=== PATIENT | female | born 1935 | race Caucasian/White ===

== ENCOUNTER → 2018-02-19 | Emergency (ER) | payer MEDICARE ==
--- NOTE | 2018-02-19 16:38 | RAD ---
CHEST TWO VIEWS: Date: 02-19-18 Comparison: 09-14-13 FINDINGS: There is an infiltrate in the right base medially that was not seen on the prior study. The lungs are otherwise clear. There are no effusions. The heart is normal in size. There is no congestive change. IMPRESSION: Streaky right basilar infiltrate medially. An early pneumonia is possible. Code T POS: HOME
== END ==
LOC: BURERS 11:46
DX: J20.9 Acute bronchitis, unspecified (principal); I10 Essential (primary) hypertension; F32.9 Major depressive disorder, single episode, unspecified; F17.210 Nicotine dependence, cigarettes, uncomplicated
CPT/HCPCS: 71046; 94640; J7620

== ENCOUNTER 2018-02-21 23:15 | Inpatient (IN) | payer MEDICARE ==
[2018-02-21] MEDS ORDERED: cefTRIAXone\\ROCEPHIN 1 GM VIAL ONE (23:56)
[2018-02-21] MEDS ORDERED: methylPREDNISolone Sod Succ/PF 125 MG/2 ML VIAL ONE (23:57)
[2018-02-22 00:01] LABS: #Basophils 0.1 thou/uL (0.0-0.2); #Eosinphils 0.1 thou/uL (0.0-0.7); #Lymphocytes 2.7 thou/uL (1.20-3.40); #Monocytes 1.1 thou/uL (0.11-0.59); #Neutrophils 5.2 thou/uL (1.40-6.50); %Eosinophils 1.3 % (0.0-10.0); %Lymphocytes 29.6 % (21.0-51.0); %Monocytes 11.7 % (0.0-10.0); %Neutrophils 56.4 % (42.0-75.0); Hemoglobin 14.3 g/dL (12.0-16.0); Mean Corpuscular HGB CONC 35.4 g/dL (32.0-36.0); Mean Corpuscular Hemoglobin 29.8 pg (27.0-31.0); Mean Corpuscular Volume 84.3 fL (78.0-98.0); Mean Platelet Volume 6.4 fL (7.4-10.4); Platelet Count 148 thou/uL (130-400); RBC Distribution Width 12.4 % (11.5-14.5); Red Blood Cell (RBC) Count 4.79 mill/uL (4.20-5.40); White Blood Cell (WBC) Count 9.2 thou/uL (4.8-10.8)
[2018-02-22 00:15] LABS: Anion Gap 14 mmol/L (10-20); BUN (Urea Nitrogen) 23 mg/dL (9.8-20.1); CK (CPK) 345 U/L (29-168); Calc. Creatinine Clearance 0 mL/min (70-130); Calcium 9.8 mg/dL (7.8-10.44); Carbon Dioxide 27 mmol/L (23-31); Chloride 98 mmol/L (98-107); Estimated GFR-MDRD 42; Glucose 102 mg/dL (83-110); Potassium 4.2 mmol/L (3.5-5.1); Sodium 135 mmol/L (136-145)
[2018-02-22] MEDS ORDERED: hydrALAZINE 20 MG/ML VIAL ONE (00:42)
[2018-02-22] MEDS ORDERED: Ondansetron PF 4 MG/2 ML Vial IVP PRN (01:59)
[2018-02-22] MEDS ORDERED: Ondansetron ODT 4 MG TAB SL PRN (01:59)
[2018-02-22] MEDS ORDERED: HYDROcodone/Acetaminophen 5/325 mg Tablet PO PRN (01:59)
[2018-02-22] MEDS ORDERED: Acetaminophen 325 MG TAB PO PRN (01:59)
[2018-02-22] MEDS ORDERED: Albuterol Sulfate 2.5 mg/3 ml Neb NEB PRN (02:01)
[2018-02-22] MEDS ORDERED: Sodium Chloride 0.9% 10 ML ONE (02:03)
[2018-02-22 02:51] LABS: Bilirubin Negative (Negative); Blood, Urine Trace (Negative); Clarity Clear (Clear); Glucose, Urine (Dipstick) Negative (Negative); Leukocyte Negative (Negative); Nitrite Negative (Negative); Protein, Urine (Dipstick) Negative (Neg-Trace); Urobilinogen 0.2 mg/dL (0.2-1.0); pH, Urine 6.5 (5.0-9.0)
[2018-02-22 02:59] LABS: Squamous Epithelial 0-3 HPF (0-3); Transitional Epithelial 0-3 HPF (0-3); WBC/HPF 0-3 HPF (0-3)
[2018-02-22] MEDS: methylPREDNISolone Sod Succ/PF 125 MG/2 ML VIAL IVP SCH ×3 (06:26→17:59)
--- NOTE | 2018-02-22 08:26 | RAD ---
PORTABLE CHEST: DATE: 02/21/2018. FINDINGS: An AP portable film at 2317 is compared with a 02/19 study. There is still some right basilar streak ing medially consistent with infiltrate, thought it has slightly improved in the interim. No new con solidations were seen. There is no vascular congestion or edema. There are no pleural effusions of concern. The heart size remains normal. IMPRESSION: Streaky right basilar infiltrate with mild improvement since 02/19. POS: HOME
[2018-02-22] MEDS ORDERED: LUTEIN EXTRACT PO SCH (09:00)
[2018-02-22] MEDS ORDERED: DHA PO SCH (09:00)
[2018-02-22] MEDS ORDERED: [UNRECOGNIZED DRUG - OTHER] PO SCH (09:00)
[2018-02-22] MEDS ORDERED: METHYLSULFONYLMETHANE PO SCH (09:00)
[2018-02-22] MEDS ORDERED: ROSUVASTATIN PO SCH (09:00)
[2018-02-22] MEDS ORDERED: OMEGA PO SCH (09:00)
[2018-02-22] MEDS ORDERED: LIPIDS PO SCH (09:00)
[2018-02-22] MEDS ORDERED: Bisoprolol Fumarate/HCTZ 5 mg/6.25 mg Tablet PO SCH (09:00)
[2018-02-22] MEDS ORDERED: LEVOTHYROXINE SODIUM 75 MCG PO SCH (09:00)
[2018-02-22] MEDS ORDERED: Non-Formulary Item 1 EACH (Multivitamin [Multi-Vitamin Daily] 1 TABLET) PO SCH (09:00)
[2018-02-22] MEDS ORDERED: ESCITALOPRAM OXALATE 10 MG PO SCH (09:00)
[2018-02-22] MEDS ORDERED: KRILL PO SCH (09:00)
[2018-02-22] MEDS ORDERED: ZEAXANTHIN EXT PO SCH (09:00)
[2018-02-22] MEDS ORDERED: EPA PO SCH (09:00)
[2018-02-22] MEDS: Calcium Carbonate + Vit D 1 TAB PO SCH ×2 (09:52→21:20)
[2018-02-22] MEDS: Multivit, Therapeutic 1 TAB PO SCH (09:53)
[2018-02-22] MEDS: Escitalopram Oxalate 20 mg Tablet PO SCH (09:53)
[2018-02-22] MEDS: Aspirin 81 mg Enteric Coated Tablet PO SCH (09:54)
[2018-02-22] MEDS: METHYLSULFONYLMETHANE PO SCH ×2 (10:03→21:04)
[2018-02-22] MEDS: LUTEIN PO SCH (10:03)
[2018-02-22] MEDS: OMEGA KRILL OIL PO SCH (10:04)
[2018-02-22] MEDS: Rosuvastatin 10 MG TAB PO SCH (21:20)
[2018-02-22] MEDS: Enoxaparin Sodium 30 MG/0.3 ML SYRINGE SC SCH (21:23)
[2018-02-23] MEDS: cefTRIAXone\\ROCEPHIN 1 GM in Sodium Chloride 0.9% 100 ML IVPB SCH (00:02)
[2018-02-23] MEDS: methylPREDNISolone Sod Succ/PF 125 MG/2 ML VIAL IVP SCH ×4 (00:04→17:44)
--- NOTE | 2018-02-23 00:33 | HP ---
PRIMARY CARE PHYSICIAN: Tl Marx MD CHIEF COMPLAINT: Shortness of breath and worsening cough. HISTORY OF PRESENT ILLNESS: Ms. Garzon is an 82-year-old white female with hypertension, hyperlipidemia, chronic kidney disease with long history of smoking and depression, presented to the emergency room on 02/21/2018 complaining of worsening cough and shortness of breath. Her symptoms started as runny cindy, chest congestion, and cough on Friday. She was advised to seek care prior to visiting her son with a terminal cancer, currently under hospice. She was diagnosed of community-acquired pneumonia and was given Azithromycin and sent home. Her cough got worse, this time associated with wheezing and shortness of breath. According to family member, she woke up from sleep night prior to admission gasping for air. She was also complaining of rib cage pain. She was seen at the ED. Her vital signs showed pulse rate of 94, respiratory rate 20, temperature of 98, O2 sat 91% to 92% on room air, and blood pressure of 205/82. She had diffused wheezing and tight breath sounds. Her chest x-ray showed streaky right basilar infiltrates with mild improvement from 02/19/2018. CBC showed WBC of 9, hemoglobin of 14, hematocrit of 40, platelet count of 148, neutrophils of 56, lymphocytes of 29, monocytes of 11.7. CMP showed sodium of 135, potassium of 4.2, chloride of 98, carbon dioxide of 27 , BUN of 23, creatinine of 1.21, GFR of 42. Glucose was 102, lactic acid was 0.6, calcium 9.8, creatinine kinase was 345, troponin was 0.015. Her EKG showed left axis deviation, nonspecific ST-T wave changes, flattened I and aVL. In the ED, she was given Solu-Medrol, DuoNeb, and hydralazine IV. Due to her worsening symptoms with hypoxemia on presentation and failed outpatient treatment for hospital- acquired pneumonia and COPD, the patient is meeting criteria for admission. This morning , she slightly improved with her breathing except for persistent cough. She is requiring breathing treatments with albuterol every 4 to 6 hours and oxygen and maintaining sats above 94%. PAST MEDICAL HISTORY: 1. Hypertension. 2. Hyperlipidemia. 3. Chronic kidney disease. 4. COPD. 5. Chronic smoker. 6. Depression. PAST SURGICAL HISTORY: 1. Hysterectomy. 2. Back surgery. SOCIAL HISTORY: The patient is a 60-pack year smoker. Last smoking was 5 days ago. She denies alcohol or drug use. FAMILY HISTORY: Mother had breast cancer and dad had heart attack. Son was diagnosed with end-stage abdominal cancer. MEDICATIONS: 1. Aspirin 81 mg daily. 2. Ziac 5 mg/6.25 mg one tablet daily. 3. Calcium with vitamin D one tablet daily. 4. Lexapro 10 mg daily. 5. Levothyroxine 75 mcg daily. 6. Multivitamins one tablet daily. 7. Crestor 2.5 mg daily. ALLERGIES: NO KNOWN DRUG ALLERGIES. CODE STATUS: Full code. REVIEW OF SYSTEMS: GENERAL: Negative for fever. Negative for chills. Positive for fatigue. HEENT: Positive for nasal congestion, rhinorrhea. Negative for sore throat. Positive for hoarseness. RESPIRATORY: Positive for shortness of breath, positive for cough. CARDIOVASCULAR: Negative for chest pain. Positive for swelling on legs. ABDOMEN: Negative for nausea or vomiting. Negative for decreased appetite. NEUROLOGIC: Negative for weakness. Negative for numbness. PSYCH: Positive for depression, stable. Negative for anxiety. DERMATOLOGY: Negative for skin rashes or lesions. PHYSICAL EXAMINATION: VITAL SIGNS: Blood pressure of 145/96, temperature of 97.4, pulse rate of 72, respiratory rate of 20, and O2 sat 93% at 2 L per nasal cannula. HEENT: Normocephalic, atraumatic. Pupils are equal and reactive to light. Negative for tonsillopharyngeal congestion. NECK: Supple. Negative for JVD. Negative for bruit. CHEST AND LUNGS: Decreased breath sounds with expiratory wheezes. HEART: Regular rate and rhythm. Negative for murmurs, rubs, or gallops. ABDOMEN: Slightly distended, soft, normoactive bowel sounds. Negative for rebound tenderness, negative for CVA tenderness. EXTREMITIES: Negative for edema. Negative for cyanosis. PSYCH: Appropriate affect and demeanor. NEUROLOGIC: Cranial nerves 2 through 12 intact. LABORATORY DATA: Labs reviewed. ASSESSMENT: 1. Acute respiratory distress secondary to community-acquired right lower lobe pneumonia with chronic obstructive pulmonary disease exacerbation. 2. Hypertension, uncontrolled. 3. Hypothyroidism. 4. Chronic kidney disease stage 2. 5. Hyperlipidemia. 6. Depression. PLAN: 1. Continue IV antibiotics for treatment of hospital or community-acquired pneumonia, blood cultures pending. 2. Change albuterol to DuoNeb every 4 to 6 hours p.r.n. for coughing and wheezing. 3. Continue IV Solu-Medrol tapered dose. 4. Repeat labs in the a.m. 5. Reconcile home medication depending on clinical status. 6. Lovenox for DVT prophylaxis. 7. dry cleaning manager to help with discharge planning and DME needs prior to discharge. 8. Transfer of care to Dr. Tl Marx in a.m. Job ID: [id number] [facility]
[2018-02-23 04:07] LABS: #Basophils 0.1 thou/uL (0.0-0.2); #Lymphocytes 1.3 thou/uL (1.20-3.40); #Monocytes 0.7 thou/uL (0.11-0.59); #Neutrophils 10.4 thou/uL (1.40-6.50); %Lymphocytes 10.2 % (21.0-51.0); %Monocytes 5.6 % (0.0-10.0); %Neutrophils 83.2 % (42.0-75.0); Hemoglobin 13.9 g/dL (12.0-16.0); Mean Corpuscular Hemoglobin 29.7 pg (27.0-31.0); Mean Corpuscular Volume 82.7 fL (78.0-98.0); Mean Platelet Volume 7.5 fL (7.4-10.4); Platelet Count 164 thou/uL (130-400); Red Blood Cell (RBC) Count 4.66 mill/uL (4.20-5.40); White Blood Cell (WBC) Count 12.5 thou/uL (4.8-10.8)
[2018-02-23 04:20] LABS: ALT (SGPT) 20 U/L (8-55); AST (SGOT) 36 U/L (5-34); Albumin 3.7 g/dL (3.4-4.8); Alkaline Phosphatase 48 U/L (40-150); Anion Gap 18 mmol/L (10-20); BUN (Urea Nitrogen) 28 mg/dL (9.8-20.1); Bilirubin, Total 0.3 mg/dL (0.2-1.2); Calc. Creatinine Clearance 43 mL/min (70-130); Calcium 9.8 mg/dL (7.8-10.44); Carbon Dioxide 21 mmol/L (23-31); Chloride 96 mmol/L (98-107); Estimated GFR-MDRD 38; Globulin 2.9 g/dL (2.4-3.5); Glucose 145 mg/dL (83-110); Potassium 3.8 mmol/L (3.5-5.1); Protein, Total 6.6 g/dL (6.0-8.3); Sodium 131 mmol/L (136-145)
[2018-02-23] MEDS: Levothyroxine Sodium 25 MCG TAB PO SCH (06:19)
[2018-02-23] MEDS ORDERED: diphenhydrAMINE 12.5 MG/5 ML UDCUP PO PRN (07:13)
[2018-02-23] MEDS ORDERED: Phenergan/Codeine 10-6.25mg/5ml UDCUP PO PRN (07:13)
[2018-02-23] MEDS ORDERED: Bisoprolol Fumarate 5 MG TAB PO SCH (09:00)
[2018-02-23] MEDS ORDERED: Prevnar 13-Val Conj/PF 0.5 ML SYRINGE IM ONE (09:00)
[2018-02-23] MEDS: Escitalopram Oxalate 20 mg Tablet PO SCH (09:37)
[2018-02-23] MEDS: Multivit, Therapeutic 1 TAB PO SCH (09:39)
[2018-02-23] MEDS: Hydrochlorothiazide 25 MG TAB PO SCH (09:39)
[2018-02-23] MEDS: Bisoprolol Fumarate 5 MG TAB PO SCH (09:40)
[2018-02-23] MEDS: Aspirin 81 mg Enteric Coated Tablet PO SCH (09:41)
[2018-02-23] MEDS: LUTEIN PO SCH (09:47)
[2018-02-23] MEDS: METHYLSULFONYLMETHANE PO SCH (09:47)
[2018-02-23] MEDS: OMEGA KRILL OIL PO SCH (09:48)
[2018-02-23] MEDS: Calcium Carbonate + Vit D 1 TAB PO SCH ×2 (09:50→20:46)
[2018-02-23 17:20] VITALS: BMI 32.3
[2018-02-23] MEDS: Rosuvastatin 10 MG TAB PO SCH (20:46)
[2018-02-23] MEDS: Enoxaparin Sodium 30 MG/0.3 ML SYRINGE SC SCH (20:48)
[2018-02-23] MEDS ORDERED: diphenhydrAMINE 12.5 MG/5 ML UDCUP ONE (22:19)
[2018-02-24] MEDS: methylPREDNISolone Sod Succ/PF 125 MG/2 ML VIAL IVP SCH ×4 (00:16→18:15)
[2018-02-24] MEDS: cefTRIAXone\\ROCEPHIN 1 GM in Sodium Chloride 0.9% 100 ML IVPB SCH (00:17)
[2018-02-24 04:10] LABS: #Basophils 0.1 thou/uL (0.0-0.2); #Lymphocytes 1.3 thou/uL (1.20-3.40); #Monocytes 0.8 thou/uL (0.11-0.59); #Neutrophils 14.3 thou/uL (1.40-6.50); %Basophils 0.4 % (0.0-1.0); %Lymphocytes 7.7 % (21.0-51.0); %Monocytes 5.1 % (0.0-10.0); %Neutrophils 86.8 % (42.0-75.0); Hemoglobin 13.5 g/dL (12.0-16.0); Mean Corpuscular HGB CONC 35.8 g/dL (32.0-36.0); Mean Corpuscular Hemoglobin 29.4 pg (27.0-31.0); Mean Corpuscular Volume 82.1 fL (78.0-98.0); Mean Platelet Volume 6.9 fL (7.4-10.4); Platelet Count 195 thou/uL (130-400); RBC Distribution Width 11.8 % (11.5-14.5); White Blood Cell (WBC) Count 16.5 thou/uL (4.8-10.8)
[2018-02-24 04:26] LABS: ALT (SGPT) 25 U/L (8-55); AST (SGOT) 45 U/L (5-34); Albumin 3.6 g/dL (3.4-4.8); Alkaline Phosphatase 45 U/L (40-150); Anion Gap 17 mmol/L (10-20); BUN (Urea Nitrogen) 32 mg/dL (9.8-20.1); Bilirubin, Total 0.3 mg/dL (0.2-1.2); Calc. Creatinine Clearance 47 mL/min (70-130); Calcium 9.4 mg/dL (7.8-10.44); Carbon Dioxide 22 mmol/L (23-31); Chloride 95 mmol/L (98-107); Estimated GFR-MDRD 42; Globulin 2.5 g/dL (2.4-3.5); Glucose 129 mg/dL (83-110); Potassium 3.8 mmol/L (3.5-5.1); Protein, Total 6.1 g/dL (6.0-8.3); Sodium 130 mmol/L (136-145)
[2018-02-24] MEDS: Levothyroxine Sodium 25 MCG TAB PO SCH (06:24)
[2018-02-24] MEDS ORDERED: Sodium Chloride 0.9% 0 ML ONE (07:45)
--- NOTE | 2018-02-24 07:58 | RAD ---
CHEST TWO VIEWS: 02/24/2018 COMPARISON: Portable study from 02/21/2018. FINDINGS: PA and lateral views are provided. One view is taken in partial expiration, so there is crowding of the basilar lung markings, particularly on the left. Another view is in better inspiration, that ada ws improvement here. Overall, there is minimal infiltrate remaining in the right base. There is a s mall amount present in the left base. I cannot tell what part of this is atelectasis versus actual i nfiltrate from pneumonia. There are no effusions. The upper lobes are clear. The trachea is midlin e. IMPRESSION: Similar to 02/21/2018 study, except slightly more streaking in the left base, some of which may be at electasis. POS: HOME
[2018-02-24] MEDS: Hydrochlorothiazide 25 MG TAB PO SCH (09:07)
[2018-02-24] MEDS: Bisoprolol Fumarate 5 MG TAB PO SCH (09:07)
[2018-02-24] MEDS: Aspirin 81 mg Enteric Coated Tablet PO SCH (09:08)
[2018-02-24] MEDS: Escitalopram Oxalate 20 mg Tablet PO SCH (09:09)
[2018-02-24] MEDS: Losartan Potassium 50 MG TAB PO SCH (09:09)
[2018-02-24] MEDS: Calcium Carbonate + Vit D 1 TAB PO SCH ×2 (09:10→21:02)
[2018-02-24] MEDS: Multivit, Therapeutic 1 TAB PO SCH (09:12)
[2018-02-24] MEDS: Sodium Chloride 0.9% 1,000 ML IV SCH (09:13)
[2018-02-24] MEDS: Rosuvastatin 10 MG TAB PO SCH (21:02)
[2018-02-24] MEDS: Enoxaparin Sodium 30 MG/0.3 ML SYRINGE SC SCH (22:53)
[2018-02-25] MEDS: methylPREDNISolone Sod Succ/PF 125 MG/2 ML VIAL IVP SCH ×2 (00:01→08:57)
[2018-02-25] MEDS: cefTRIAXone\\ROCEPHIN 1 GM in Sodium Chloride 0.9% 100 ML IVPB SCH (00:03)
[2018-02-25 03:59] LABS: #Basophils 0.2 thou/uL (0.0-0.2); #Lymphocytes 1.3 thou/uL (1.20-3.40); #Monocytes 0.8 thou/uL (0.11-0.59); #Neutrophils 11.5 thou/uL (1.40-6.50); %Basophils 1.1 % (0.0-1.0); %Lymphocytes 9.6 % (21.0-51.0); %Monocytes 5.8 % (0.0-10.0); %Neutrophils 83.5 % (42.0-75.0); Hemoglobin 13.2 g/dL (12.0-16.0); Mean Corpuscular HGB CONC 35.6 g/dL (32.0-36.0); Mean Corpuscular Hemoglobin 29.1 pg (27.0-31.0); Mean Corpuscular Volume 81.6 fL (78.0-98.0); Mean Platelet Volume 6.8 fL (7.4-10.4); Platelet Count 213 thou/uL (130-400); RBC Distribution Width 11.8 % (11.5-14.5); Red Blood Cell (RBC) Count 4.55 mill/uL (4.20-5.40); White Blood Cell (WBC) Count 13.8 thou/uL (4.8-10.8)
[2018-02-25 04:03] LABS: ALT (SGPT) 25 U/L (8-55); AST (SGOT) 38 U/L (5-34); Albumin 3.4 g/dL (3.4-4.8); Alkaline Phosphatase 40 U/L (40-150); Anion Gap 14 mmol/L (10-20); BUN (Urea Nitrogen) 30 mg/dL (9.8-20.1); Bilirubin, Total 0.3 mg/dL (0.2-1.2); Calc. Creatinine Clearance 50 mL/min (70-130); Calcium 9.5 mg/dL (7.8-10.44); Carbon Dioxide 25 mmol/L (23-31); Chloride 99 mmol/L (98-107); Estimated GFR-MDRD 46; Globulin 2.3 g/dL (2.4-3.5); Glucose 124 mg/dL (83-110); Potassium 3.7 mmol/L (3.5-5.1); Protein, Total 5.7 g/dL (6.0-8.3); Sodium 134 mmol/L (136-145)
[2018-02-25] MEDS: Levothyroxine Sodium 25 MCG TAB PO SCH (05:59)
[2018-02-25 06:30] VITALS: BP 138/98; TEMP 97.9
[2018-02-25] MEDS: Hydrochlorothiazide 25 MG TAB PO SCH (08:54)
[2018-02-25] MEDS: Multivit, Therapeutic 1 TAB PO SCH (08:54)
[2018-02-25] MEDS: Escitalopram Oxalate 20 mg Tablet PO SCH (08:55)
[2018-02-25] MEDS: Bisoprolol Fumarate 5 MG TAB PO SCH (08:56)
[2018-02-25] MEDS: Aspirin 81 mg Enteric Coated Tablet PO SCH (08:56)
[2018-02-25] MEDS: Losartan Potassium 50 MG TAB PO SCH (08:56)
[2018-02-25] MEDS: Sodium Chloride 0.9% 1,000 ML IV SCH (08:57)
[2018-02-25] MEDS: Calcium Carbonate + Vit D 1 TAB PO SCH (08:57)
--- NOTE | 2018-02-26 05:16 | DIS ---
DATE OF ADMISSION: 02/22/2018 DATE OF DISCHARGE: 02/25/2018 ADMISSION DIAGNOSIS: Community-acquired pneumonia with right lower lobe chronic obstructive pulmonary disease exacerbation. SECONDARY DIAGNOSES: Hypertension, hyperlipidemia, hypothyroidism, insomnia, and hyponatremia. PROCEDURES: 02-22-18 chest x-ray showed streaky right basilar infiltrate with mild improvement since 02/19/2018. 02/24/2018, chest x-ray showed similar to prior study except slightly more streaking in the left base, some of which maybe atelectasis. HOSPITAL COURSE: An 82-year-old female with chronic smoking history, initially presented to the emergency department a few days prior to admission with diagnosis of community-acquired pneumonia and was sent home on a course of p.o. azithromycin. Unfortunately, her URI symptoms worsened to the point that she developed shortness of breath and borderline desaturations. A repeat chest x-ray did show right basilar infiltrate with mild improvement. However, secondary to her worsening respiratory status, she was admitted for further treatment. She was started on IV Solu- Medrol, DuoNeb treatments, and empiric therapy with Rocephin and Levaquin IV. She was provided supplemental oxygen, which at this point has been effectively weaned. Her labs were trended and due to mild hyponatremia, she was provided normal saline which improved this issue. The patient's wheezing and cough both vastly improved to where she is near her baseline respiratory status at this point. She is amenable to discharge to her home setting to complete her course of p.o. antibiotics, p.o. steroids with a rescue inhaler for p.r.n. use. We will also start the patient on Anoro as well for a baseline medication for her newly diagnosed COPD. During the patient's stay, her blood pressure remained elevated, thus losartan was initiated which did improve her hypertension. As stated, she feels much better at this time and is appropriate for discharge to complete the aforementioned medications. DISPOSITION: The patient will be discharged home and may follow up with myself in the clinic next week. DISCHARGE MEDICATIONS: Include, 1. Levaquin 500 mg p.o. daily x5 days. 2. Prednisone 20 mg 2 tabs x3 days followed by 1 tab for an additional 3 days. 3. Anoro 1 puff inhaled daily. 4. Proventil inhaler 1 puff q.6 hours p.r.n. 5. Losartan 50 mg p.o. daily. She will resumer her usual medications which include, 1. Aspirin 81 mg p.o. daily. 2. Ziac 5 mg/6.25 mg p.o. daily. 3. Calcium and vitamin D tablet daily. 4. Lexapro 10 mg p.o. daily. 5. Levothyroxine 75 mcg p.o. daily. 6. Daily multivitamin. 7. Crestor 2.5 mg p.o. at bedtime. Job ID: [id number] [facility]
== END 2018-02-25 13:30 | disposition home or self-care (01) | DRG 190 ==
LOC: BURERS 23:15 → BURMED 02-22 00:35
PROVIDERS: ADMIT Family Medicine; ATTEND Family Medicine
DX: J44.1 Chronic obstructive pulmonary disease with (acute) exacerbation (principal); J18.1 Lobar pneumonia, unspecified organism; E87.1 Hypo-osmolality and hyponatremia; J44.0 Chronic obstructive pulmonary disease with (acute) lower respiratory infection; G47.30 Sleep apnea, unspecified; I12.9 Hypertensive chronic kidney disease with stage 1 through stage 4 chronic kidney disease, or unspecified chronic kidney disease; N18.2 Chronic kidney disease, stage 2 (mild); F32.9 Major depressive disorder, single episode, unspecified; E78.5 Hyperlipidemia, unspecified; E03.9 Hypothyroidism, unspecified; F17.210 Nicotine dependence, cigarettes, uncomplicated; Z98.890 Other specified postprocedural states; Z90.710 Acquired absence of both cervix and uterus; Z79.899 Other long term (current) drug therapy; Z79.82 Long term (current) use of aspirin; Z88.2 Allergy status to sulfonamides
CPT/HCPCS: 36415; 71045; 71046; 80048; 80053; 81001; 82550; 83605; 84484; 85025; 87040; 87086; 93005; 94640; 94760; 96365; 96375; J0360; J0696; J1650; J1956; J2930; J7050; J7620

== ENCOUNTER 2022-03-19 11:51 | Emergency (ER) | payer MEDICARE ==
[2022-03-20] MEDS ORDERED: Acetaminophen 325 MG TAB ONE (11:51)
== END 2022-03-19 13:03 | disposition short-term general hospital (02) ==
LOC: BURERS 11:51
DX: S72.302A Unspecified fracture of shaft of left femur, initial encounter for closed fracture (principal); E03.9 Hypothyroidism, unspecified; E78.00 Pure hypercholesterolemia, unspecified; I10 Essential (primary) hypertension; F17.210 Nicotine dependence, cigarettes, uncomplicated; Z79.899 Other long term (current) drug therapy; X58.XXXA Exposure to other specified factors, initial encounter
CPT/HCPCS: 72100; 72170

== ENCOUNTER 2022-06-04 16:19 | Emergency (ER) | payer MEDICARE ==
[~2022-06-04 16:19] MED LIST: Iopamidol 370 76% 100 ML VIAL ONE
[2022-06-04] MEDS ORDERED: Furosemide 40 MG/4 ML VIAL ONE (17:01)
[2022-06-04 17:03] LABS: #Basophils 0.1 thou/uL (0.0-0.2); #Lymphocytes 1.1 thou/uL (1.20-3.40); #Monocytes 0.3 thou/uL (0.11-0.59); #Neutrophils 6.3 thou/uL (1.40-6.50); %Basophils 0.8 % (0.0-1.0); %Eosinophils 0.3 % (0.0-10.0); %Lymphocytes 14.2 % (21.0-51.0); %Monocytes 3.9 % (0.0-10.0); %Neutrophils 80.8 % (42.0-75.0); Hemoglobin 9.4 g/dL (12.0-16.0); Mean Corpuscular HGB CONC 31.1 g/dL (32.0-36.0); Mean Corpuscular Hemoglobin 30.3 pg (27.0-31.0); Mean Corpuscular Volume 97.5 fl (78.0-98.0); Platelet Count 214 10x3/uL (130-400); RBC Distribution Width 16.7 % (11.5-14.5); Red Blood Cell (RBC) Count 3.11 mill/uL (4.20-5.40); White Blood Cell (WBC) Count 7.9 10x3/uL (4.8-10.8)
[2022-06-04 17:08] LABS: ALT (SGPT) 16 U/L (8-55); AST (SGOT) 22 U/L (5-34); Albumin 3.7 g/dL (3.4-4.8); Alkaline Phosphatase 84 U/L (40-110); Anion Gap 15 mmol/L (10-20); BUN (Urea Nitrogen) 33 mg/dL (9.8-20.1); Bilirubin, Total 0.4 mg/dL (0.2-1.2); CK (CPK) 18 U/L (29-168); CRP (Inflammatory) 1.64 mg/dL (= or < 0.5); Calc. Creatinine Clearance 0 mL/min (70-130); Calcium 10.2 mg/dL (7.8-10.44); Carbon Dioxide 27 mmol/L (23-31); Chloride 101 mmol/L (98-107); Estimated GFR 30; Globulin 2.7 g/dL (2.4-3.5); Glucose 165 mg/dL (83-110); Lipase 22 U/L (8-78); Magnesium 2.1 mg/dL (1.6-2.6); Potassium 4.5 mmol/L (3.5-5.1); Protein, Total 6.4 g/dL (5.8-8.1); Sodium 138 mmol/L (136-145)
[2022-06-04 17:20] LABS: Bilirubin Negative (Negative); Blood, Urine Negative (Negative); Clarity Clear (Clear); Glucose, Urine (Dipstick) Negative (Negative); Ketone, Urine Negative (Negative); Leukocyte Negative (Negative); Nitrite Negative (Negative); Protein, Urine (Dipstick) 30 mg/dL (Neg-Trace); Specific Gravity, Urine 1.015 (1.005-1.030); Urobilinogen 0.2 mg/dL (Less than 2)
[2022-06-04 17:23] LABS: Bacteria/HPF 2+ HPF (None Seen); RBC/HPF 0-3 HPF (0-3); Squamous Epithelial 0-3 HPF (0-3); WBC/HPF 0-3 HPF (0-3)
== END 2022-06-04 20:24 | disposition short-term general hospital (02) ==
LOC: BURERS 16:19
DX: G93.40 Encephalopathy, unspecified (principal); C81.90 Hodgkin lymphoma, unspecified, unspecified site; R53.1 Weakness; E03.9 Hypothyroidism, unspecified; E78.00 Pure hypercholesterolemia, unspecified; M06.9 Rheumatoid arthritis, unspecified; I10 Essential (primary) hypertension; I48.91 Unspecified atrial fibrillation; D64.9 Anemia, unspecified; E11.9 Type 2 diabetes mellitus without complications; F17.210 Nicotine dependence, cigarettes, uncomplicated; Z79.01 Long term (current) use of anticoagulants; Z79.899 Other long term (current) drug therapy
CPT/HCPCS: 51702; 71045; 74177; 80053; 81003; 81015; 82550; 83605; 83690; 83735; 83880; 84443; 84484; 85025; 86140; 93005; 96374; J1940; Q9967